=== PATIENT | female | born 1975 | race Two or more races ===

== ENCOUNTER 2021-05-26 16:41 | Inpatient (IN) | payer OTHER ==
[~2021-05-26] VITALS: Ht 160 cm; Wt 114.8 kg
[2021-05-26] MEDS ORDERED: SYNTHROID175 MCG PO (16:46)
[2021-05-31] MEDS ORDERED: AMOX1TAB5 PO (11:11)
[2021-05-31] MEDS ORDERED: ULTRACET PO (11:13)
[2021-05-31] MEDS ORDERED: SURFAK240 M1 PO (11:14)
== END 2021-05-31 12:42 | disposition home or self-care (01) | DRG 419 ==
LOC: ER 16:41 → SEC-K 05-27 12:49 → SURH 05-27 12:49 → O/R 05-28 10:41 → SURH 05-28 16:32
PROVIDERS: ADMIT Surgery; ATTEND Surgery
PROC: BW2110Z Computerized Tomography (CT Scan) of Abdomen and Pelvis using Low Osmolar Contrast, Unenhanced and Enhanced (ICD-10-PCS; 2021-05-27)
PROC: BW40ZZZ Ultrasonography of Abdomen (ICD-10-PCS; 2021-05-27)
PROC: BF03YZZ Plain Radiography of Gallbladder and Bile Ducts using Other Contrast (ICD-10-PCS; 2021-05-28)
PROC: 0FT44ZZ Resection of Gallbladder, Percutaneous Endoscopic Approach (ICD-10-PCS; principal; 2021-05-28 12:30)
DX: K80.00 Calculus of gallbladder with acute cholecystitis without obstruction (principal); K66.0 Peritoneal adhesions (postprocedural) (postinfection); Z20.822 Contact with and (suspected) exposure to COVID-19; E03.8 Other specified hypothyroidism; E66.8 Other obesity; F17.200 Nicotine dependence, unspecified, uncomplicated